=== PATIENT | male | born 1980 | race Caucasian/White ===

== ENCOUNTER 2017-06-24 19:41 | Emergency (ER) | payer OTHER ==
[2017-06-24] MEDS ORDERED: ACETAMINOPHEN TAB 500 MG TAB PO STA (21:13)
[2017-06-24] MEDS ORDERED: IBUPROFEN 600 MG TAB PO STA (21:13)
[2017-06-24] MEDS ORDERED: ORPHENADRINE 30 MG/ML 2 ML VIAL IVP STA (21:14)
[2017-06-24 21:46] VITALS: TEMP 98.6
[2017-06-24 21:48] LABS: Basophils % (A) 1 %; CH 35.3; CHCM 33.7; Eosinophils # (A) 0.1 k/uL (0-0.7); Eosinophils % (A) 1 %; HDW 1.94; HGB 14.7 gm/dL (13.0-17.5); Luc % (Auto) 2; Lymphocytes # (A) 1.5 k/uL (1.0-4.8); Lymphocytes % (A) 27 %; MCH 34.3 pg (25.0-35.0); MCHC 32.7 g/dL (31.0-37.0); Macrocytosis Slight; Mean Platelet Volume 8.1; Monocytes # (A) 0.6 k/uL (0-1.0); Monocytes % (A) 10 %; Neutrophils # (A) 3.2 k/uL (1.3-7.7); Neutrophils % (A) 59 %; RBC 4.29 m/uL (4.30-5.90); RDW 13.6 % (11.5-15.5); WBC 5.4 k/uL (3.8-10.6)
--- NOTE | 2017-06-24 21:56 | XR ---
EXAMINATION TYPE: XR lumbar spine 2 or 3V DATE OF EXAM: 06/24/2017 COMPARISON: NONE HISTORY: Back pain TECHNIQUE: 3 views FINDINGS: Lumbar vertebra have normal spacing and alignment. Posterior elements are intact. Sacroilia c joints appear normal. IMPRESSION: Normal lumbar spine
[2017-06-24 22:00] LABS: Appearance,Urine Clear (Clear); Bilirubin,Urine Negative (Negative); Glucose,Urine (UA) Negative (Negative); Ketones,Urine 1+ (Negative); Leukocyte Esterase,Urine Negative (Negative); Nitrite,Urine Negative (Negative); Protein,Urine Trace (Negative); Specific Gravity,Urine 1.023 (1.001-1.035); UA Billing (MACRO vs. MICRO) CHEM
[2017-06-24 22:02] LABS: Anion Gap 11 mmol/L; Blood Urea Nitrogen 14 mg/dL (9-20); Calcium 9.8 mg/dL (8.4-10.2); Carbon Dioxide 25 mmol/L (22-30); Chloride 104 mmol/L (98-107); Glucose 83 mg/dL (74-99); Non-African American GFR(MDRD) >60 (>60 ml/min/1.73 sqM); Sodium 140 mmol/L (137-145)
--- NOTE | 2017-06-24 22:02 | ED ---
Back Pain HPI - General Chief Complaint: Back Pain/Injury Stated Complaint: [facility]/ Back Pain Time Seen by Provider: 06/24/17 20:51 Source: patient, RN notes reviewed, old records reviewed Limitations: no limitations - History of Present Illness Initial Comments: This is a 36-year-old male presenting to the emergency Department chief complaint of acute onset of lower back pain. Patient reports it started when he was at work and bent down to pick something up. He also reports he's noted a fever today. He reports no other associated symptoms. Denies any urinary symptoms or saddle anesthesias. He states that he's had no known injuries to his back and denies any falls. Patient reports that after the injury he had 2 laying on the ground until his friend to pick him up. Patient states that he's had no numbness or tingling down his legs. He states that he stays in the small of his back. Patient denies any chest pain, shortness of breath, nausea, vomiting, abdominal pain, headache. - Related Data Previous Rx's Medication Instructions Recorded Cyclobenzaprine [Flexeril] 10 mg PO TID #15 tab 06/24/17 Dexamethasone 0.75 mg PO DAILY #12 tab 06/24/17 HYDROcodone/APAP 5-325MG [[place] 1 tab PO Q6HR PRN #15 tab 06/24/17 5-325] Allergies Allergy/AdvReac Type Severity Reaction Status Date / Time codeine AdvReac Unknown Verified 06/24/17 21:13 Childhood Review of Systems ROS Statement: Those systems with pertinent positive or pertinent negative responses have been documented in the HPI. ROS Other: All systems not noted in ROS Statement are negative. Past Medical History Past Medical History: No Reported History History of Any Multi-Drug Resistant Organisms: None Reported Past Surgical History: No Surgical Hx Reported Past Psychological History: No Psychological Hx Reported Smoking Status: Current every day smoker Past Alcohol Use History: Occasional Past Drug Use History: None Reported General Exam - General Exam Comments Initial Comments: Is a 36-year-old male. No acute distress. Limitations: no limitations General appearance: alert, in no apparent distress Head exam: Present: atraumatic, normocephalic, normal inspection Eye exam: Present: normal appearance, PERRL, EOMI. Absent: scleral icterus, conjunctival injection, periorbital swelling ENT exam: Present: normal exam, mucous membranes moist Neck exam: Present: normal inspection. Absent: tenderness, meningismus, lymphadenopathy Respiratory exam: Present: normal lung sounds bilaterally. Absent: respiratory distress, wheezes, rales, rhonchi, stridor Cardiovascular Exam: Present: regular rate, normal rhythm, normal heart sounds. Absent: systolic murmur, diastolic murmur, rubs, gallop, clicks GI/Abdominal exam: Present: soft, normal bowel sounds. Absent: distended, tenderness, guarding, rebound, rigid Extremities exam: Present: normal inspection, full ROM, normal capillary refill. Absent: tenderness, pedal edema, joint swelling, calf tenderness Back exam: Present: normal inspection, tenderness (lumbar spinal tenderness and flank tenderness) Neurological exam: Present: alert, oriented X3, CN II-XII intact Psychiatric exam: Present: normal affect, normal mood Skin exam: Present: warm, dry, intact, normal color. Absent: rash Course Vital Signs 06/24/17 06/24/17 20:43 21:46 Temperature 100.5 F H 98.6 F Pulse Rate 60 56 L Respiratory 18 18 Rate Blood Pressure 144/83 165/89 O2 Sat by Pulse 97 98 Oximetry Medical Decision Making - Medical Decision Making This is a 36-year-old male presenting to the emergency Department chief complaint of acute onset of lower back pain. Patient reports it started when he was at work and bent down to pick something up. He also reports he's noted a fever today. He reports no other associated symptoms. Denies any urinary symptoms or saddle anesthesias. He states that he's had no known injuries to his back and denies any falls. Patient reports that after the injury he had 2 laying on the ground until his friend to pick him up. Patient states that he's had no numbness or tingling down his legs. Given the patient's fever I decided to IV fluid and labs on him. Patient received Motrin, Tylenol and IV Norflex. Lumbar spine x-rays obtained. At this time CBC shows evidence of macrocytosis. Patient reports he is an occasional drinker which is likely the cause of this. Patient urinalysis negative for any acute process including blood or signs of infection. Lumbar spine x-ray was reviewed and negative for any acute process. Patient was informed of these results. He reports that he is feeling somewhat better after medications. Discussed that I will discharge the patient with a prescription for steroids, muscle relaxers and pain medication. Discussed close follow-up with primary care physician. Patient also advised to put heat and ice over his lower back. Patient understands treatment plan will comply. Return parameters were discussed. - Lab Data Result diagrams: 06/24/17 21:31 06/24/17 21:31 Lab Results 06/24/17 06/24/17 06/24/17 Range/Units 21:31 21:31 21:48 WBC 5.4 (3.8-10.6) k/uL RBC 4.29 L (4.30-5.90) m/uL Hgb 14.7 (13.0-17.5) gm/dL Hct 45.0 (39.0-53.0) % MCV 105.0 H (80.0-100.0) fL MCH 34.3 (25.0-35.0) pg MCHC 32.7 (31.0-37.0) g/dL RDW 13.6 (11.5-15.5) % Plt Count 155 (150-450) k/uL Neutrophils % 59 % Lymphocytes % 27 % Monocytes % 10 % Eosinophils % 1 % Basophils % 1 % Neutrophils # 3.2 (1.3-7.7) k/uL Lymphocytes # 1.5 (1.0-4.8) k/uL Monocytes # 0.6 (0-1.0) k/uL Eosinophils # 0.1 (0-0.7) k/uL Basophils # 0.0 (0-0.2) k/uL Macrocytosis Slight Sodium 140 (137-145) mmol/L Potassium 4.0 (3.5-5.1) mmol/L Chloride 104 (98-107) mmol/L Carbon Dioxide 25 (22-30) mmol/L Anion Gap 11 mmol/L BUN 14 (9-20) mg/dL Creatinine 0.80 (0.66-1.25) mg/dL Est GFR (MDRD) Af Amer >60 (>60 ml/min/1.73 sqM) Est GFR (MDRD) Non-Af >60 (>60 ml/min/1.73 sqM) Glucose 83 (74-99) mg/dL Calcium 9.8 (8.4-10.2) mg/dL Urine Color Yellow Urine Appearance Clear (Clear) Urine pH 8.0 (5.0-8.0) Ur Specific [place] 1.023 (1.001-1.035) Urine Protein Trace H (Negative) Urine Glucose (UA) Negative (Negative) Urine Ketones 1+ H (Negative) Urine Blood Negative (Negative) Urine Nitrite Negative (Negative) Urine Bilirubin Negative (Negative) Urine Urobilinogen 6.0 (<2.0) mg/dL Ur Leukocyte Esterase Negative (Negative) - Radiology Data Radiology results: report reviewed Patient's lumbar spine x-ray showed to be normal. Posterior elements are intact. Sacroiliac joints appear normal. Disposition Clinical Impression: Low back pain Disposition: HOME SELF-CARE Condition: Good Instructions: Acute Low Back Pain (ED) Additional Instructions: Patient advised to follow-up with a primary care physician. Apply heat and ice to the back. Patient is to take medications as prescribed. Return to emergency department if any alarming signs or symptoms occur. Prescriptions: Cyclobenzaprine [Flexeril] 10 mg PO TID #15 tab Dexamethasone 0.75 mg PO DAILY #12 tab HYDROcodone/APAP 5-325MG [[place] 5-325] 1 tab PO Q6HR PRN #15 tab PRN Reason: Pain Referrals: None,Stated [Primary Care Provider] - 1-2 days Elizabeth Edwards MD [STAFF PHYSICIAN] - 1-2 days Time of Disposition: 22:15
[2017-06-24 22:26] VITALS: BP 108/69; PULSE 66; RESP 16
== END 2017-06-24 22:25 | disposition home or self-care (01) ==
LOC: EC 19:41
DX: M54.5 Low back pain (principal); D75.89 Other specified diseases of blood and blood-forming organs; F17.200 Nicotine dependence, unspecified, uncomplicated; Z88.5 Allergy status to narcotic agent; X50.1XXA Overexertion from prolonged static or awkward postures, initial encounter; Y99.0 Civilian activity done for income or pay; Y92.69 Other specified industrial and construction area as the place of occurrence of the external cause
CPT/HCPCS: 36415; 80048; 85025; 81003; 72100; 99284; 96374; J2360

== ENCOUNTER 2019-04-06 09:07 | Inpatient (IN) | payer OTHER ==
[2019-04-06] MEDS ORDERED: SODIUM CHLORIDE 0.9% 1,000 ML IV STA (09:27)
--- NOTE | 2019-04-06 09:30 | ED ---
Psych HPI - General Chief Complaint: Psychiatric Symptoms Stated Complaint: SUICIDAL Time Seen by Provider: 04/06/19 09:12 Source: patient, RN notes reviewed, old records reviewed Mode of arrival: ambulatory - History of Present Illness Initial Comments: Patient is a 38-year-old male who was brought into the emergency department today by his stepfather with complaints of suicidal ideation and alcohol intoxication. Patient reportedly restart her stepfather today via social media. Patient reports that he's had a history of suicidal thoughts with a sober and intoxicated. He denies any specific plan at this time. He has a strong family history of alcoholism. Patient is reportedly homeless at this time. Patient states he has not seen psychiatric care since he was 16 years old. Patient states that he is at the rock bottom of his life and has no hope. Patient states he drinks heavily on a daily basis but when he does quit drinking he never goes through withdrawal symptoms. - Related Data Previous Rx's Medication Instructions Recorded Cyclobenzaprine [Flexeril] 10 mg PO TID #15 tab 06/24/17 Dexamethasone 0.75 mg PO DAILY #12 tab 06/24/17 HYDROcodone/APAP 5-325MG [[place] 1 tab PO Q6HR PRN #15 tab 06/24/17 5-325] Allergies Allergy/AdvReac Type Severity Reaction Status Date / Time codeine AdvReac Unknown Verified 04/06/19 09:11 Childhood Review of Systems ROS Statement: Those systems with pertinent positive or pertinent negative responses have been documented in the HPI. ROS Other: All systems not noted in ROS Statement are negative. Past Medical History Past Medical History: No Reported History History of Any Multi-Drug Resistant Organisms: None Reported Past Surgical History: No Surgical Hx Reported Past Psychological History: Depression Smoking Status: Current every day smoker Past Alcohol Use History: Abuse, Occasional Past Drug Use History: None Reported General Exam - General Exam Comments Initial Comments: 30-year-old male. Patient appears intoxicated. Limitations: no limitations General appearance: alert, appears intoxicated Head exam: Present: atraumatic, normocephalic, normal inspection Eye exam: Present: normal appearance, PERRL, EOMI. Absent: scleral icterus, conjunctival injection, periorbital swelling ENT exam: Present: normal exam, mucous membranes moist Neck exam: Present: normal inspection. Absent: tenderness, meningismus, lymphadenopathy Respiratory exam: Present: normal lung sounds bilaterally. Absent: respiratory distress, wheezes, rales, rhonchi, stridor Cardiovascular Exam: Present: regular rate, normal rhythm, normal heart sounds. Absent: systolic murmur, diastolic murmur, rubs, gallop, clicks GI/Abdominal exam: Present: soft, normal bowel sounds. Absent: distended, tenderness, guarding, rebound, rigid Extremities exam: Present: normal inspection, full ROM, normal capillary refill. Absent: tenderness, pedal edema, joint swelling, calf tenderness Back exam: Present: normal inspection Neurological exam: Present: alert, oriented X3, CN II-XII intact Psychiatric exam: Present: normal mood, depressed, suicidal ideation. Absent: normal affect Skin exam: Present: warm, dry, intact, normal color. Absent: rash Course Vital Signs 04/06/19 09:08 Temperature 98.0 F Pulse Rate 101 H Respiratory 18 Rate Blood Pressure 168/120 O2 Sat by Pulse 99 Oximetry Medical Decision Making - Medical Decision Making Patient's a 38-year-old male presents emergency department today with acute INTOXICATION COMPLAINS OF SUICIDAL IDEATION. DENIES ANY SPECIFIC PLAN. PATIENT ARRIVES TO EMERGENCY DEPARTMENT FEELING INTOXICATED. HE DENIES ANY FALLS TRAUMA OR ANY OTHER COMPLAINTS AT THIS TIME. PATIENT BLOOD ALCOHOL LEVELS 0.4-5. BLOOD WORK OTHERWISE UNREMARKABLE. IS GIVEN A 2 L BOLUS AND STARTED ON BANANA BAG. PATIENT IS NOT MEDICALLY SOBER UNTIL LATE THIS EVENING. PATIENT WILL BE ADMITTED AT THIS TIME. DR. ANDRADE DISCUSSED THE CASE WITH DR. GOETZ. - Lab Data Result diagrams: 04/06/19 09:30 04/06/19 09:30 Lab Results 04/06/19 04/06/19 04/06/19 Range/Units 09:30 09:30 09:30 WBC 6.1 (3.8-10.6) k/uL RBC 4.72 (4.30-5.90) m/uL Hgb 15.8 (13.0-17.5) gm/dL Hct 48.5 (39.0-53.0) % MCV 102.7 H (80.0-100.0) fL MCH 33.5 (25.0-35.0) pg MCHC 32.6 (31.0-37.0) g/dL RDW 14.3 (11.5-15.5) % Plt Count 147 L (150-450) k/uL Neutrophils % 42 % Lymphocytes % 47 % Monocytes % 7 % Eosinophils % 1 % Basophils % 1 % Neutrophils # 2.5 (1.3-7.7) k/uL Lymphocytes # 2.8 (1.0-4.8) k/uL Monocytes # 0.5 (0-1.0) k/uL Eosinophils # 0.0 (0-0.7) k/uL Basophils # 0.0 (0-0.2) k/uL Macrocytosis Slight Sodium 144 (137-145) mmol/L Potassium 3.9 (3.5-5.1) mmol/L Chloride 107 (98-107) mmol/L Carbon Dioxide 24 (22-30) mmol/L Anion Gap 13 mmol/L BUN 6 L (9-20) mg/dL Creatinine 0.55 L (0.66-1.25) mg/dL Est GFR (CKD-EPI)AfAm >90 (>60 ml/min/1.73 sqM) Est GFR (CKD-EPI)NonAf >90 (>60 ml/min/1.73 sqM) Glucose 86 (74-99) mg/dL Calcium 9.2 (8.4-10.2) mg/dL Magnesium 2.0 (1.6-2.3) mg/dL Total Bilirubin 0.6 (0.2-1.3) mg/dL AST 89 H (17-59) U/L ALT 65 (21-72) U/L Alkaline Phosphatase 86 (38-126) U/L Total Protein 7.9 (6.3-8.2) g/dL Albumin 5.0 (3.5-5.0) g/dL Amylase 106 (30-110) U/L Lipase 526 H (23-300) U/L Urine Opiates Screen Not Detected (NotDetected) Ur Oxycodone Screen Not Detected (NotDetected) Urine Methadone Screen Not Detected (NotDetected) Ur Propoxyphene Screen Not Detected (NotDetected) Ur Barbiturates Screen Not Detected (NotDetected) U Tricyclic Antidepress Not Detected (NotDetected) Ur Phencyclidine Scrn Not Detected (NotDetected) Ur Amphetamines Screen Not Detected (NotDetected) U Methamphetamines Scrn Not Detected (NotDetected) U Benzodiazepines Scrn Not Detected (NotDetected) Urine Cocaine Screen Not Detected (NotDetected) U Marijuana (THC) Screen Detected H (NotDetected) Serum Alcohol 425 H* mg/dL Disposition Clinical Impression: Suicidal ideation, Alcohol abuse, Alcohol intoxication Disposition: ADMITTED IP TO THIS HOSP Condition: Stable Is patient prescribed a controlled substance at d/c from ED?: No Referrals: None,Stated [Primary Care Provider] - 1-2 days Time of Disposition: 10:31
[2019-04-06] MEDS ORDERED: SODIUM CHLORIDE 0.9% 1,000 ML with MVI, ADULT NO.4 WITH VIT K 10 ML, THIAMINE 100 MG, F... IV ONE ×4 (09:45)
[2019-04-06 09:52] LABS: Basophils % (A) 1 %; Eosinophils % (A) 1 %; HCT 48.5 % (39.0-53.0); HGB 15.8 gm/dL (13.0-17.5); Lymphocytes # (A) 2.8 k/uL (1.0-4.8); Lymphocytes % (A) 47 %; MCH 33.5 pg (25.0-35.0); MCHC 32.6 g/dL (31.0-37.0); MCV 102.7 fL (80.0-100.0); Macrocytosis Slight; Mean Platelet Volume 8.1; Monocytes # (A) 0.5 k/uL (0-1.0); Monocytes % (A) 7 %; Neutrophils # (A) 2.5 k/uL (1.3-7.7); Neutrophils % (A) 42 %; Platelet Count 147 k/uL (150-450); RBC 4.72 m/uL (4.30-5.90); RDW 14.3 % (11.5-15.5); WBC 6.1 k/uL (3.8-10.6)
[2019-04-06 10:06] LABS: ALT 65 U/L (21-72); AST 89 U/L (17-59); Alkaline Phosphatase 86 U/L (38-126); Amylase 106 U/L (30-110); Anion Gap 13 mmol/L; Blood Urea Nitrogen 6 mg/dL (9-20); Calcium 9.2 mg/dL (8.4-10.2); Carbon Dioxide 24 mmol/L (22-30); Chloride 107 mmol/L (98-107); Glucose 86 mg/dL (74-99); Lipase 526 U/L (23-300); Potassium 3.9 mmol/L (3.5-5.1); Sodium 144 mmol/L (137-145); Total Bilirubin 0.6 mg/dL (0.2-1.3); Total Protein 7.9 g/dL (6.3-8.2)
[2019-04-06] MEDS ORDERED: LORazepam 2 MG/ML INJ IV STA (10:06)
[2019-04-06 10:10] LABS: Amphetamine Screen,Urine Not Detected (NotDetected); Barbiturate Screen,Urine Not Detected (NotDetected); Benzodiazepines Screen,Urine Not Detected (NotDetected); Cocaine Screen,Urine Not Detected (NotDetected); Methadone Screen, Urine Not Detected (NotDetected); Opiate Screen,Urine Not Detected (NotDetected); Oxycodone Screen, Urine Not Detected (NotDetected); Phencyclidine Screen,Urine Not Detected (NotDetected); Tricyclic Antidepressant,Urine Not Detected (NotDetected); Urn Cannabinoid Scrn Detected (NotDetected)
[2019-04-06 10:27] LABS: Alcohol 425 mg/dL
[2019-04-06] MEDS ORDERED: LORazepam 2 MG/ML INJ IV PRN ×2 (10:29)
[2019-04-06] MEDS ORDERED: THIAMINE 100 MG/ML 2 ML VIAL IM STA (10:29)
[2019-04-06] MEDS ORDERED: KETOROLAC 30 MG/ML 1 ML VIAL IVP PRN (10:31)
[2019-04-06] MEDS ORDERED: NALOXONE 0.4 MG/ML 1 ML VIAL IV PRN (10:31)
[2019-04-06] MEDS ORDERED: ONDANSETRON 4 MG/2 ML VIAL IVP PRN (10:31)
--- NOTE | 2019-04-06 12:03 | HP ---
HISTORY AND PHYSICAL CHIEF COMPLAINT: A 38-year-old male brought to the emergency room by stepfather. Complains of suicidal ideation and alcohol intoxication. He has been talking to the sitter in the room. Apparently has been drinking heavily for the past 6 or 7 days. He denies suicidal thoughts to the sitter at this time, but he is sleeping. He is obtunded at this point. He has no specific plans from family history of alcoholism. He is homeless. No psychiatric care since age 16. Survived part of his life with no home and alcohol on a daily basis. Apparently medications he does not take any at home. 14-POINT REVIEW OF SYSTEMS: Fourteen point review of systems negative except for obtundation. ALLERGIES: CODEINE. PAST PSYCH HISTORY: Apparently, current everyday smoker. Alcohol abuse as mentioned, depression. Temp 98, pulse is 90 to 105, respiratory rate 16 to 18, blood pressure is 160/120 on admission, O2 99. He is obtunded. He has pallor to his extremities. He is sleeping comfortably. He is arousable to pain, but falls back asleep. He has no tremors lying in bed. Neurologic, otherwise apparently he has been moving his 4 extremities. Cardiovascular S1, S2. Abdomen shows no mass. Normal bowel sounds. Integument no rash. Neck no adenopathy. No scleral icterus. Psych as mentioned. Obtunded. ASSESSMENT: 1. Alcohol intoxications. 2. Possible suicidal ideation. 3. Banana bags. 4. [facility] protocol. 5. Psych consult pending. 6. He has elevated liver enzyme with AST of 89 secondary to alcohol most likely. 7. Drug screen is only positive for marijuana. Alcohol level as mentioned is 425, so he is legally drunk. 8. Alcohol dependence. Acute on chronic pancreatitis with lipase of 526. Possibility of surgical consult for high lipase. Possible ultrasounds of his pancreas and liver. MMODL / IJN: [id number] /
[2019-04-06] MEDS: LORazepam 2 MG/ML INJ IV PRN ×2 (14:55→19:52)
[2019-04-06 15:09] VITALS: BMI 25.4
[2019-04-06] MEDS: THIAMINE 100 MG TAB PO SCH ×2 (17:40→17:42)
[2019-04-06] MEDS: NICOTINE 21MG/24HR PATCH TRANSDERM SCH (19:52)
[2019-04-07] MEDS: LORazepam 2 MG/ML INJ IV PRN ×3 (00:14→12:40)
[2019-04-07] MEDS ORDERED: PANTOPRAZOLE 40 MG/10 ML VIAL IV SCH (09:00)
--- NOTE | 2019-04-07 09:07 | US ---
EXAMINATION TYPE: US abdomen complete DATE OF EXAM: 04/07/2019 COMPARISON: NONE CLINICAL HISTORY: pancreatitis. Patient states no abdomen pain or N/V, no abdomen surgeries, exam don e portable. EXAM MEASUREMENTS: Liver Length: 17.4 cm Gallbladder Wall: 0.2 cm CBD: 0.5 cm Spleen: 12.1 cm Right Kidney: 11.8 x 4.9 x 5.7 cm Left Kidney: 10.6 x 6.6 x 5.2 cm Pancreas: mildly heterogeneous, limited by overlying midline bowel gas. No discrete mass or cyst is evident Liver: measures in upper limits of normal Gallbladder: wnl Evidence for sonographic Dixon's sign: no CBD: wnl Spleen: wnl Right Kidney: wnl Left Kidney: wnl Upper IVC: wnl Abd Aorta: wnl IMPRESSION: 1. Mild heterogeneity within the pancreas could reflect mild pancreatitis.
[2019-04-07] MEDS: NICOTINE 21MG/24HR PATCH TRANSDERM SCH (09:10)
[2019-04-07] MEDS: THIAMINE 100 MG TAB PO SCH ×2 (09:10→18:37)
--- NOTE | 2019-04-07 11:04 | P.GSCN ---
History of Present Illness Consult date: 04/07/19 Reason for Consult: Alcohol pancreatitis History of present illness: This is a 30-year-old male who admits to excessive drinking. Patient points of abdominal pain. He is worked up emergency room found have alcohol pancreatitis. Patient had an elevated blood alcohol at the time of admission.. Past Medical History Past Medical History: No Reported History Additional Past Medical History / Comment(s): ETOH abuse History of Any Multi-Drug Resistant Organisms: None Reported Past Surgical History: No Surgical Hx Reported Past Anesthesia/Blood Transfusion Reactions: Unable to Obtain Additional Past Anesthesia/Blood Transfusion Reaction / Comm: Pt has never had anesthesia. Smoking Status: Current every day smoker - Past Family History Father History Unknown: Yes Mother Additional Family Medical History / Comment(s): Recovered alcoholic. Medications and Allergies Home Medications Medication Instructions Recorded Confirmed Type No Known Home Medications 04/06/19 04/06/19 History Allergies Allergy/AdvReac Type Severity Reaction Status Date / Time codeine AdvReac Unknown Verified 04/06/19 10:33 Childhood Surgical - Exam Vital Signs Temp Pulse Resp BP Pulse Ox 98.0 F 101 H 18 168/120 99 04/06/19 09:08 04/06/19 09:08 04/06/19 09:08 04/06/19 09:08 04/06/19 09:08 - General well developed, well nourished, no distress - Eyes PERRL - ENT normal nares - Abdomen Mild epigastric tenderness Abdomen: soft Results - Labs 04/06/19 09:30 04/06/19 09:30 Assessment and Plan Assessment: Alcohol pancreatitis. Patient will receive fluid hydration. No surgical intervention is planned.
[2019-04-07 20:41] VITALS: BP 154/86; PULSE 86; RESP 16; TEMP 98.5
--- NOTE | 2019-04-07 21:21 | CONS ---
CONSULTATION DATE OF SERVICE: 04/07/2019. PURPOSE FOR CONSULTATION: Evaluate for alcohol withdrawal. HISTORY OF PRESENT ILLNESS: The patient is a 38-year-old male he was brought to the emergency room by his stepfather. He apparently had complaints of suicide thoughts and had alcohol intoxication. According to the admission note, he had been drinking heavily for the past 6-7 days. He was denying any suicide thoughts when he was admitted. There is a family history of alcoholism. He apparently is homeless. He has had no past psychiatric care since age 16, it was difficult to get a clear history of the patient's alcohol use. He stated that he had been drinking a significant amount over the last 4 days by his report. He said he was on a "donato" and was drinking heavily. He indicated that he would drink about 3 24 ounce alcoholic cider with an alcohol content of about 8%. He notes that he would go perhaps a week without drinking. He had been living with his significant other. He said she had significant problems with alcohol. He would be clean for a week or 2, though she would then start drinking and he would get back into drinking himself. He notes that this has been a long-term pattern. He suggested since March 14 he was drinking approximately 5 days a week, though in the last week he was drinking on a daily basis. Before March he had a week where he said he did not drink. He said he could not give a clear picture of periods where he drank or when he was not drinking, going back to November. He notes that overall he has drank regularly much of his adult life. Currently, he is not on any psychotropic medications. It is noted that on admission on 03/07/2019 at 9:30 am, his blood alcohol level was 425. He was also positive for marijuana. In regards to marijuana, the patient says he smokes marijuana infrequently. He says he does not like to smoke marijuana because it tends to cause him to have anxiety. He states that he does not use other abusive substances. He acknowledges that he has had a long history of alcohol use, though again provided few details. During the interview, the patient indicated that he was hopeful to be discharged as soon as possible. He states that he was not suicidal at the time of admission and that he had no thoughts of harm to self or others. He said he was uncomfortable having the one-to-one in his room. I saw him a short time later after reviewing the chart. His mother and stepfather were in the room. His stepfather was the person who apparently had gotten him to the hospital. The stepfather was not able to be clear about the issue whether he felt the patient had been suicidal or was currently having any thoughts of harm. The patient does not have a history of self-abusive behavior. It is noted that when I talked to the patient about a treatment plan, that he would need to remain in the hospital for at least another 24 hours. The patient then became somewhat angry. He stated that he was upset because he was stuck in the hospital, that he had to have somebody in the room watching him. He said that if he went off one-to-one, he would not have any thoughts of harming himself. His parents tried to reassure him in regards to attempting to make his limited stay here as comfortable as possible. He made an indication that he would be able to continue the hospital stay, though anticipated being discharged tomorrow. It is noteworthy that he received his last dose of Ativan on 04/06 at 10:57 am. Vital signs have been stable. His last vital signs recorded at 12:58 pm included BP 150/86, pulse 64 and regular, temp 98. It is noted that the patient said that he had one period somewhere within the last year, where he was withdrawing from alcohol. He said that he did fine during the day time, though he had 1 evening where he was having hallucinations and was quite disordered in his thinking. He said it cleared after one evening. MENTAL STATUS: Patient was lying in bed with his head somewhat up. He gave fairly good eye contact. Psychomotor activity was restless. He answered questions with brief responses. His thoughts were clear. His affect was anxious, though at times, he had an angry and tense manner. His mood was dysphoric. He seemed moderately distressed. There was no indication of thought disorder. Cognition was clear. ASSESSMENT/PLAN: I would diagnose the patient with alcohol dependence and acute alcohol withdrawal. He gives a history of possible limited delirium tremens within the last year from alcohol withdrawal. He may have underlying major depression as well. The patient was insistent on the idea of being discharged from the hospital once he is through a limited detox. I indicated to the patient that he would likely need to remain in the hospital for approximately 24 hours from the time that I saw him late in the afternoon. I discussed detox issues. I altered monitoring and set up a plan for vital signs q.4 hours with use of Ativan based on vital signs as well as CIWA. If the patient remains stable over the next 24 hours, he likely could be discharged safely to outpatient followup. I will continue to follow. SERENE / CADMEN: [id number] /
== END 2019-04-07 20:12 | disposition left against medical advice (07) | DRG 894 ==
LOC: EC 09:07 → 3NMEDONC 10:31
PROVIDERS: ADMIT Family Medicine; ATTEND Family Medicine
DX: F10.229 Alcohol dependence with intoxication, unspecified (principal); K85.20 Alcohol induced acute pancreatitis without necrosis or infection; K86.0 Alcohol-induced chronic pancreatitis; K86.81 Exocrine pancreatic insufficiency; F10.239 Alcohol dependence with withdrawal, unspecified; F32.9 Major depressive disorder, single episode, unspecified; F17.200 Nicotine dependence, unspecified, uncomplicated; Y90.8 Blood alcohol level of 240 mg/100 ml or more; Z59.0 Homelessness; Z88.5 Allergy status to narcotic agent; Z81.1 Family history of alcohol abuse and dependence
CPT/HCPCS: 36415; 76700; 80053; 80306; 80320; 82075; 82150; 83690; 83735; 85025; 96365; 96366; 96372; 96375; 99285